=== PATIENT | female | born 1995 | race Caucasian/White ===

== ENCOUNTER → 2017-10-11 15:16 | Outpatient (CLI) | payer OTHER, SELFPAY ==
--- NOTE | 2017-10-11 | US_ITS ---
US thyroid HISTORY: ITS.REASON: THYROMEGALY ORDERING PHYSICIAN: Maxx Nur MD PATIENT AGE: 22 years Comparison: None FINDINGS: The right lobe is 4.2 x 1.5 x 1.9 cm. No discrete nodule is evident. The left lobe measures 4.7 x 1.4 x 1.9 cm. No discrete nodule. The isthmus is slightly enlarged at 5 mm. No obvious nodule. IMPRESSION: Bilateral thyroid enlargement overall not significantly changed. No discrete nodule.
[2017-10-11 18:00] LABS: Thyroid Stimulating Hormone 1.35 uIU/ml (0.358-3.740)
[2017-10-12 12:35] LABS: Free T4 (Free Thyroxine) 0.95 ng/dl (0.76-1.46)
[2017-10-13 09:19] LABS: Thyroid Peroxidase Antibodies 9 IU/mL (0-34)
[2017-10-13 17:27] LABS: Thyroglobulin Level <1.0 IU/mL (0.0-0.9)
== END ==
PROVIDERS: PCP Family Medicine; Visit Provider Otolaryngology
DX: E01.0 Iodine-deficiency related diffuse (endemic) goiter (principal)
CPT/HCPCS: 36415; 76536; 84436; 84439; 84443; 84481; 86376; 86800